=== PATIENT | male | born 1960 ===

== ENCOUNTER 2020-04-24 15:59 | Outpatient (CLI) | payer BC, SELFPAY | END 2020-04-24 16:00 | disposition home or self-care (01) | LOC: ANHCOVIDVC 15:59 | PROVIDERS: PCP Podiatrist Foot & Ankle Surgery | DX: Z23 Encounter for immunization (principal) | CPT/HCPCS: 0001A; 91300 ==

== ENCOUNTER 2020-05-15 15:57 | Outpatient (CLI) | payer BC, SELFPAY | END 2020-05-15 15:58 | disposition home or self-care (01) | LOC: ANHCOVIDVC 15:57 | PROVIDERS: PCP Podiatrist Foot & Ankle Surgery | DX: Z23 Encounter for immunization (principal) | CPT/HCPCS: 0002A; 91300 ==